=== PATIENT | male | born 1965 | race Caucasian/White ===

== ENCOUNTER 2019-08-31 14:45 | Emergency (ER) | payer SELFPAY ==
[~2019-08-31] VITALS: Ht 175.3 cm; Wt 86.6 kg
[2019-08-31 14:56] VITALS: Ht 175.3 cm; Wt 86.6 kg
[2019-08-31 16:02] LABS: BASOPHIL % 0.3 % (0-2); PLATELET COUNT 233 x10^3mcL (130-400)
[2019-08-31 17:36] LABS: CARBON DIOXIDE 29.3 mmol/L (21-32); CHLORIDE SERUM 104 mmol/L (98-107); GLUCOSE SERUM 101 mg/dL (74-106); POTASSIUM SERUM 4.3 mmol/L (3.5-5.1); SODIUM SERUM 143 mmol/L (136-145)
[2019-08-31 17:37] LABS: ALBUMIN 3.9 g/dL (3.4-5.0); ALKALINE PHOSPHATASE 82 U/L (46-116); ALT/SGPT 41 U/L (16-63); AST/SGOT 22 U/L (15-37); BILIRUBIN TOTAL 0.63 mg/dL (0.20-1.00); CALCIUM 8.9 mg/dL (8.5-10.1); CHOLESTEROL 154 mg/dL (<200); GFR1 > 60 mL/min; HDL CHOLESTEROL 35 mg/dL (40-60); TOTAL PROTEIN, SERUM 7.6 g/dL (6.4-8.2)
[2019-08-31 18:16] VITALS: BP 139/90
== END 2019-08-31 18:16 | disposition home or self-care (01) ==
LOC: ED 14:45
PROVIDERS: Emergency Medicine
DX: R51 Headache (principal); R42 Dizziness and giddiness; R11.0 Nausea; S00.81XA Abrasion of other part of head, initial encounter; X58.XXXA Exposure to other specified factors, initial encounter; Y93.9 Activity, unspecified; Y92.89 Other specified places as the place of occurrence of the external cause; Y99.8 Other external cause status
CPT/HCPCS: J1885; J2405; J7030

== ENCOUNTER 2019-11-24 12:44 | Emergency (ER) | payer SELFPAY | END 2019-11-24 12:56 | disposition left against medical advice (07) | LOC: ED 12:44 | DX: Z53.21 Procedure and treatment not carried out due to patient leaving prior to being seen by health care provider (principal) ==

== ENCOUNTER 2019-11-27 07:22 | Emergency (ER) | payer MEDICAID ==
[~2019-11-27] VITALS: Ht 175.3 cm; Wt 83.0 kg
[2019-11-27 07:26] VITALS: Ht 175.3 cm; Wt 83.0 kg
[2019-11-27 08:06] LABS: CALCIUM 9.2 mg/dL (8.5-10.1); CARBON DIOXIDE 30.3 mmol/L (21-32); CHLORIDE SERUM 105 mmol/L (98-107); CREATININE SERUM 0.9 mg/dL (0.7-1.3); GFR1 > 60 mL/min; GLUCOSE SERUM 130 mg/dL (74-106); POTASSIUM SERUM 4.3 mmol/L (3.5-5.1); SODIUM SERUM 144 mmol/L (136-145)
[2019-11-27 08:14] LABS: BASOPHIL % 0.3 % (0-2); PLATELET COUNT 230 x10^3mcL (130-400); RED CELL DISTRIBUTION WIDTH 13.3 % (11.5-14.5)
[2019-11-27 08:47] VITALS: BP 118/88
== END 2019-11-27 08:47 | disposition home or self-care (01) ==
LOC: ED 07:22
PROVIDERS: Emergency Medicine
DX: R42 Dizziness and giddiness (principal); R11.0 Nausea
CPT/HCPCS: 36415; Q0162

== ENCOUNTER 2019-12-05 14:34 | Emergency (ER) | payer MEDICAID ==
[~2019-12-05] VITALS: Ht 180.3 cm; Wt 82.1 kg
[2019-12-05 14:42] VITALS: Ht 180.3 cm; Wt 82.1 kg
[2019-12-05 15:44] LABS: BASOPHIL % 0.4 % (0-2); PLATELET COUNT 229 x10^3mcL (130-400); RED CELL DISTRIBUTION WIDTH 13.3 % (11.5-14.5)
[2019-12-05 16:20] LABS: CARBON DIOXIDE 29.2 mmol/L (21-32); CHLORIDE SERUM 102 mmol/L (98-107); CREATININE SERUM 0.9 mg/dL (0.7-1.3); GFR1 > 60 mL/min; GLUCOSE SERUM 97 mg/dL (74-106); POTASSIUM SERUM 4.7 mmol/L (3.5-5.1); SODIUM SERUM 138 mmol/L (136-145)
[2019-12-05 16:25] LABS: ALBUMIN 4.2 g/dL (3.4-5.0); ALKALINE PHOSPHATASE 81 U/L (46-116); ALT/SGPT 43 U/L (16-63); AST/SGOT 23 U/L (15-37); BILIRUBIN TOTAL 0.41 mg/dL (0.20-1.00); LIPASE 87 IU/L (73-393); TOTAL PROTEIN, SERUM 7.4 g/dL (6.4-8.2)
[2019-12-05 17:47] VITALS: BP 138/78
== END 2019-12-05 17:25 | disposition home or self-care (01) ==
LOC: ED 14:34
PROVIDERS: Emergency Medicine
DX: R42 Dizziness and giddiness (principal); R11.0 Nausea
CPT/HCPCS: 36415; J8597; Q0162

== ENCOUNTER 2020-02-19 10:05 | Emergency (ER) | payer MEDICAID ==
[~2020-02-19] VITALS: Ht 172.7 cm; Wt 80.7 kg
[2020-02-19 10:14] VITALS: Ht 172.7 cm; Wt 80.7 kg
[2020-02-19 12:05] VITALS: BP 134/89
== END 2020-02-19 12:13 | disposition home or self-care (01) ==
LOC: ED 10:05
DX: R11.0 Nausea (principal); R42 Dizziness and giddiness; R20.2 Paresthesia of skin; R51 Headache; Z98.890 Other specified postprocedural states

== ENCOUNTER 2020-05-11 08:01 | Emergency (ER) | payer SELFPAY ==
[~2020-05-11] VITALS: Ht 180.3 cm; Wt 84.4 kg
[2020-05-11 08:07] VITALS: Ht 180.3 cm; Wt 84.4 kg
[2020-05-11 09:22] VITALS: BP 123/87
== END 2020-05-11 09:22 | disposition home or self-care (01) ==
LOC: ED 08:01
DX: S91.312A Laceration without foreign body, left foot, initial encounter (principal); Z98.890 Other specified postprocedural states; W04.XXXA Fall while being carried or supported by other persons, initial encounter; Y93.89 Activity, other specified; Y92.89 Other specified places as the place of occurrence of the external cause; Y99.8 Other external cause status
CPT/HCPCS: 90715; J2001